=== PATIENT | female | born 1940 | race Caucasian/White ===

== ENCOUNTER 2017-02-15 19:17 | Emergency (ER) | payer OTHER ==
[~2017-02-15] VITALS: Ht 157.5 cm; Wt 86.2 kg
[2017-02-15 19:29] VITALS: BP 138/73
--- NOTE | 2017-02-15 20:25 | ED DYSPNEA/ASTHMA COMPLAINT ---
History of Present Illness General Chief Complaint: General Adult Stated Complaint: PT VERY CONGESTED ,COUGHING BRING UP STUFF Source: patient, family, old records Exam Limitations: language barrier Vital Signs & Intake/Output Vital Signs & Intake/Output Vital Signs Date Time Temp Pulse Resp B/P B/P Pulse O2 O2 Flow FiO2 Mean Ox Delivery Rate 02/16 2104 88 20 95 Room Air 02/15 2041 97 Aerosol Mask 02/15 1929 98.4 108 18 138/73 96 Room Air ED Intake and Output 02/16 0000 02/15 1200 Intake Total Output Total Balance Patient 190 lb Weight Allergies Coded Allergies: hazelnut (Severe, SWOLLEN TONGUE 02/15/17) peach (Severe, SWOLLEN TONGUE 02/15/17) Uncoded Allergies: APPLES (Severe, SWOLLEN TONGUE 02/15/17) Reconcile Medications Azithromycin (Zithromax) 250 MG TABLET 1 DP PO AD bronchitis 2 the first day followed by 1 for days 2-5 Codeine Phosphate/Guaifenesi (Guaifen-Codeine 100-10 MG/5 Ml) 10 MG-100 MG/5 ML LIQUID 10 ML PO Q6HR PRN COUGH Triage Note: PT COMPLAINS OF LOOSE COUGH PRODUCTIVE OF CLEAR SPUTUM SINCE THURSDAY, TAKING ROBITUSSIN DM AND ITS NOT HELPING WITH THE COUGH. Triage Nurses Notes Reviewed? yes Onset: Gradual Duration: day(s): (4), constant Timing: recent history Severity: mild, moderate Activities at Onset: none Prior Episodes/Possible Cause: occasional episodes Modifying Factors: Worsens With: movement. Associated Symptoms: cough HPI: 77-year-old female history of diabetes presents to ER for evaluation with her daughter who is interpreting. According to the daughter the patient has had a productive cough of yellow sputum for the past 4 days. She's been taking Robitussin [id number] which is not helping. She denies shortness of breath reports rhinorrhea congestion and she had a subjective fever today. No chest pain or shortness of breath. No abdominal pain. Patient denies nausea vomiting or diarrhea. She reports a sore throat secondary to her cough. They' ve not sought care for the symptoms until today no leg swelling. No change in her mental status. (KADEN BROWN,VINCENT) Past History Travel History Traveled to [place] past 21 day No Medical History Any Pertinent Medical History? see below for history EENT: allergies, cataracts Cardiovascular: hypertension, hyperlipidemia Respiratory: NONE Gastrointestinal: diverticulitis Hepatic: NONE Renal: NONE Musculoskeletal: rheumatoid arthritis Psychiatric: NONE Endocrine: diabetes Blood Disorders: anemia Cancer(s): NONE [employer] FIELD SUPERVISOR/Reproductive: NONE Surgical History Surgical History: non-contributory Psychosocial History What is your primary language Citizen Of [place] Tobacco Use: Never used ETOH Use: denies use Illicit Drug Use: denies illicit drug use Family History Hx Contributory? No (VINCENT KUMAR) Review of Systems Review of Systems Constitutional: Reports: see HPI. All Other Systems: Reviewed and Negative Comments Review of systems: See HPI, All other systems negative. Constitutional, no chills fever, no malaise no weight loss HEENT: No visual changes no sore throat no congestion, no ear pain Cardiovascular: No chest pain , no palpitation , no orthopnea Skin: no rashes, no change in skin Respiratory: No dyspnea cough sputum no hemoptysis GI: No nausea no vomiting, no diarrhea, no bloating/constipation : No dysuria No hematuria, no frequency, no discharge Muscle skeletal: No joint pain, no joint swelling, no back pain, no neck pain, Neurologic: No numbness no confusion, no headache Psych: No stress no depression,. Heme/endocrine: No bruising no bleeding Immunology: No lymphadenopathy (VINCENT KUMAR) Physical Exam Physical Exam General Appearance: well developed/nourished, alert, awake Respiratory: normal breath sounds Comments: Well-developed well-nourished person in no acute distress Head/Face: Atraumatic, no maxillary/frontal sinus tenderness, no facial swelling Eyes: PERRL, EOMI, no conjunctival injection. No nystagmus Ear:External auditory canal and Tympanic membranes clear, no erythema, no FB. Nose: atraumatic.Normal inspection: No bleeding, no septal hematoma Throat: Moist mucous membranes.Pharynx normal. No pharyngeal erythema/exudate seen. No stridor/drooling or assymetry. No swelling or edema. Neck: Supple, no lymphadenopathy, FROM Back: Nontender,Full range of motion Cardiovascular: Regular rate and rhythms no murmurs rubs Respiratory: Chest nontender.There were no bony deformities, no asymmetry. No respiratory distress. Patient speaking in full complete sentences. Breath sounds clear to auscultation bilaterally: NO W/R/R Abdomen: Soft, nontender nondistended, no appreciable organomegaly. Normal bowel sounds. No rebound/guarding, No appreciable enlargement of the abdominal aorta, No ascites. Extremity: No edema, full range of motion of extremities Neuro: Alert oriented x3, motor sensory normal There were no obvious focal neurologic abnormalities. Skin: No appreciable rash on exposed skin, skin is warm and dry. Psych: Mood and affect is normal, memory and judgment is normal. Core Measures ACS in differential dx? No Severe Sepsis Present: No Septic Shock Present: No (VINCENT KUMAR) Progress Differential Diagnosis: asthma, AMI, bronchitis, CHF, COPD, musculoskeletal pain , pulmonary embolism, pneumonia, pneumothorax Plan of Care: Orders Procedure Date/time Status CBC WITHOUT DIFFERENTIAL 02/15 2030 Complete BASIC METABOLIC PANEL 02/15 2030 Complete Laboratory Tests 02/15/172036: Anion Gap 13, Estimated GFR > 60, BUN/Creatinine Ratio 26.7 H, Glucose 178 H, Calcium 8.9, CBC w Diff NO MAN DIFF REQ, RBC 3.88 L, MCV 89.3, MCH 30.0, RDW 13.6, MPV 9.7, Gran % 75.5 H, Lymphocytes % 9.9 L, Monocytes % 11.9 H, Eosinophils % 2.5, Basophils % 0.2, Absolute Granulocytes 6.0, Absolute Lymphocytes 0.8 L, Absolute Monocytes 1.0 H, Absolute Eosinophils 0.2, Absolute Basophils 0, PUBS MCHC 33.6 X-ray was ordered from triage [facility] ordered On repeat evaluation patient reports to feeling improved after breathing treatment I discussed with the patient at length all of their results. I had an extensive conversation regarding need for close follow up with their primary care physician this week as well as return precautions. I answered all of their questions, they feel comfortable with the plan and follow-up care. I discussed the medications that they will receive with the patient. I gave them signs and symptoms that could indicate an adverse reaction. I have advised them to limit their activities until they can see how they respond to the medication. (VINCENT KUMAR) Diagnostic Imaging: Viewed by Me: Radiology Read. Discussed w/RAD: Radiology Read. Radiology Impression: PATIENT: SIM SOTOMAYOR PRESENT AGE: 77 PATIENT ACCOUNT NO: [id number] : 39 LOCATION: [facility] ORDERING PHYSICIAN: HELEN SHAHID DO SERVICE DATE: 02/15/17 EXAM TYPE: RAD - XRY-CHEST XRAY, PA AND LATERAL EXAMINATION: XR CHEST CLINICAL INFORMATION: Shortness of breath and cough. Clear sputum. COMPARISON: No relevant prior studies are available for comparison. TECHNIQUE: PA and lateral views of the chest were obtained. FINDINGS: Right lower lobe atelectasis. No focal airspace consolidation. No pleural effusion or pneumothorax. Mildly enlarged cardiomediastinal silhouette. No acute osseous abnormality. IMPRESSION: Right lower lobe atelectasis. Mild cardiomegaly. DICTATED BY: RAIN GROVER MD DATE /TIME DICTATED:02/15/172049 TREAD BOOKER:JESSE DATE/TIME TRANSCRIBED: 02/15/172049 CONFIDENTIAL, DO NOT COPY WITHOUT APPROPRIATE AUTHORIZATION. < Electronically signed in Other Vendor System> SIGNED BY: RAIN GROVER MD 02/15/172053 Initial ED EKG: none (VINCENT KUMAR) Departure Departure Disposition: HOME OR SELF CARE Condition: Stable Clinical Impression Primary Impression: Bronchitis Referrals: ROBERT PEREZ (PCP/Family) Additional Instructions: moshepak as directed. robitussin with codeine for cough- this may make her drowsy. follow up with [facility] this week. return to the ER with any concerns these were sent to your pharmacy Departure Forms: Customer Survey General Discharge Information Prescriptions: Current Visit Scripts Azithromycin (Zithromax) 1 DP PO AD #6 TAB 2 the first day followed by 1 for days 2-5 Codeine Phosphate/Guaifenesi (Guaifen-Codeine 100-10 MG/5 Ml) 10 ML PO Q6HR PRN COUGH #200 ML (VINCENT KUMAR) PA/DOCTOR ASSISTANT Co-Sign Statement Statement: ED Attending supervision documentation- [] I saw and evaluated the patient. I have also reviewed all the pertinent lab results and diagnostic results. I agree with the findings and the plan of care as documented in the PA's/DOCTOR ASSISTANT's documentation. [x] I have reviewed the ED Record and agree with the PA's/DOCTOR ASSISTANT's documentation. [] Additions or exceptions (if any) to the PAs/DOCTOR ASSISTANT's note and plan are summarized below: [] (FUENTES LOVE,JUAN Marquez) Critical Care Note Critical Care Note Critical Care Time: non-applicable (VINCENT KUMAR)
[2017-02-15 20:51] LABS: ABSOLUTE BASOPHIL COUNT 0 /CUMM (0.0-0.2); ABSOLUTE EOSINOPHIL COUNT 0.2 /CUMM (0.0-0.7); ABSOLUTE LYMPH COUNT 0.8 /CUMM (1.2-3.4); BASOPHIL % 0.2 % (0.0-2.0); EOSINOPHIL % 2.5 % (0-5); GRANULOCYTE % 75.5 % (42.2-75.2); HEMATOCRIT 34.7 % (37-47); MEAN CORPUSCULAR HGB CONC 33.6 G/DL (33.0-37.0); MEAN CORPUSCULAR VOLUME 89.3 FL (81.0-99.0); MEAN PLATELET VOLUME 9.7 FL (7.4-10.4); PLATELET COUNT 151 /CUMM (130-400); RBC DISTRIBUTION WIDTH 13.6 % (11.5-14.5); RED BLOOD CELL CT 3.88 /CUMM (4.20-5.40)
--- NOTE | 2017-02-15 20:54 | RADIOLOGY REPORT ---
EXAMINATION: XR CHEST CLINICAL INFORMATION: Shortness of breath and cough. Clear sputum. COMPARISON: No relevant prior studies are available for comparison. TECHNIQUE: PA and lateral views of the chest were obtained. FINDINGS: Right lower lobe atelectasis. No focal airspace consolidation. No pleural effusion or pneumothorax. Mildly enlarged cardiomediastinal silhouette. No acute osseous abnormality. IMPRESSION: Right lower lobe atelectasis. Mild cardiomegaly.
[2017-02-15] MEDS ORDERED: ZITHROMAX250 M2 PO (21:42)
[2017-02-15] MEDS ORDERED: GUAIFEN-CODEIN118 M1 PO (21:42)
== END 2017-02-15 21:50 ==
LOC: ERH 19:17
PROVIDERS: Physician Assistant Medical
DX: J40 Bronchitis, not specified as acute or chronic (principal)
CPT/HCPCS: 1263